=== PATIENT | female | born 2000 | race Caucasian/White ===

== ENCOUNTER 2019-10-27 15:04 | Outpatient (CLI) | payer SELFPAY ==
--- NOTE | 2019-10-27 15:14 | XR_ITS ---
WS: [id number] FOOT RIGHT TECHNIQUE: 3 views of the right foot CLINICAL INFORMATION: RIGHT FOOT PAIN COMPARISON: None. FINDINGS: No evidence of acute fracture or dislocation. Normal tarsal metatarsal alignment. Normal calcaneus. N ormal visualized talar dome. Mild soft tissue edema. XR/XR foot RT min 3V* [id number] IMPRESSION: Mild soft tissue edema. No visualized fractures.
== END 2019-10-27 15:05 | disposition home or self-care (01) ==
LOC: RADWPI 15:09
PROVIDERS: Family Provider Nurse Practitioner Family; PCP Nurse Practitioner Family; Visit Provider Nurse Practitioner Family
DX: M79.671 Pain in right foot (principal); R60.9 Edema, unspecified
CPT/HCPCS: 73630

== ENCOUNTER 2019-11-05 13:52 | Outpatient (CLI) | payer BC, SELFPAY ==
--- NOTE | 2019-11-05 14:07 | MR_ITS ---
WS: [id number] INDICATION: Right foot pain TECHNIQUE: MR of the right foot without gadolinium enhancement. Sagittal PD, sagittal STIR, axial T1, axial STIR, axial PD, axial T2, coronal PD, coronal T2 FINDINGS: MR of the right foot without gadolinium enhancement. Normal anatomic alignment. Normal meta tarsals. Normal MCP joints. Normal phalanges. Vitamin E marker in the area of interest dorsal forefoot. Diffuse subcutaneous edema in the area of c oncern. Recommend correlation with cellulitis. No evidence of drainable abscess or fluid collection. Edema extends into the intertarsal soft tissues. Distal Achilles is normal in appearance. No tendinosis. Normal peroneal tendons. Normal extensor and flexor compartment tendons. Normal tarsal bones. No visualized wrist fractures. Normal talus and calc aneus. Normal medial and lateral malleolus. Normal talar calcaneal articulation. MR/MR foot RT wo con* [id number] IMPRESSION: 1. Dorsal and lateral diffuse soft tissue edema in the midfoot and forefoot ex tending into the intertarsal soft tissues. Recommend correlation for recent tra shawn or cellulitis. No drainable fluid collections. 2. No visualized fractures or stress fractures. 3. Normal peroneal tendons. Normal extensor and flexor compartment tendons. 4. Normal talar dome. Normal ankle mortise. 5. No other significant findings.
== END 2019-11-05 13:53 | disposition home or self-care (01) ==
LOC: RADSHAW 14:04
PROVIDERS: PCP Nurse Practitioner Family; Visit Provider Nurse Practitioner Family
DX: M79.671 Pain in right foot (principal); R60.9 Edema, unspecified
CPT/HCPCS: 73718

== ENCOUNTER 2020-10-04 16:30 | Outpatient (CLI) | payer BC, MEDICAID, SELFPAY ==
[2020-10-04 16:30] VITALS: BMI 37.0
[2020-10-04 17:01] VITALS: BP 121/64; PULSE 86
[2020-10-04 17:02] VITALS: TEMP 36.4
--- NOTE | 2020-10-04 17:08 | USR_ITS ---
PROCEDURE INFORMATION: Exam: US , Limited Exam date and time: 10/04/2020 5:08 PM Age: 20 years old Clinical indication: Lmp or gestational age (in weeks): 21w4d; Antepartum complications; Bleeding; ; Additional info: Spotting. Placental evaluation/location, weight/gest TECHNIQUE: Imaging protocol: Real-time ultrasound of the maternal uterus with image documentation. Exam focused on the clinical indication. COMPARISON: No relevant prior studies available. FINDINGS: Gestation: Single live intrauterine gestation. presentation: Cephalic presentation. heart rate: heart rate 147 bpm. Placenta: Anterior placenta. Negative for abruption. Negative for previa. Amniotic fluid: Amniotic fluid volume subjectively adequate. BIOMETRY: Gestational age (AUA): Gestational age based on current biometry 21 weeks, 3 days. Estimated gestational age based on prior clinical dating 21 weeks, 4 days. Estimated weight: Estimated weight 423 g; 47th percentile MATERNAL: Cervix: Cervical length estimated 3.21 cm measured transabdominally. Other findings: Biparietal diameter 4.98 cm; 29th percentile; Head circumference 19.46 cm; 44th percentile; Abdominal circumference 15.93 cm; 26th percentile; Femur length 3.72 cm; 50th percentile US/ OB limited [id number] IMPRESSION: 1. Single live cephalic presentation intrauterine gestation with no acute findings identified. 2. Anterior placenta without evidence of abruption or previa. 3. Unremarkable growth pattern. Current biometry remains concordant with previously estimated gestational age.
[2020-10-04 18:00] LABS: Glucose Urine UA Norm (Normal); Protein Urine Neg (Negative); Urine Appearance Clear (CLEAR); Urine Color Straw (Yellow); pH Urine 7 (5-7)
[2020-10-04 18:01] LABS: Add Urine Culture? No; Add Urine Microscopic? YES; Bacteria Urine 1+ /hpf; Bilirubin Urine Neg (Negative); Blood Urine 3+ (Negative); Ketones Urine Negative (Negative); Leukocyte Esterase Urine Trace (Negative); Nitrate Urine Negative (Negative); RBC Urine 0-4 /hpf (0-2); Squamous Epithelial Cell Urine RARE /hpf (0-5); Urobilinogen Urine Norm (Negative)
== END 2020-10-04 18:00 | disposition home or self-care (01) ==
LOC: OPOB 16:37 → OBGYN 16:38
PROVIDERS: PCP Nurse Practitioner Family; Visit Provider Family Medicine
DX: O46.92 Antepartum hemorrhage, unspecified, second trimester (principal); Z3A.21 21 weeks gestation of pregnancy
CPT/HCPCS: 59025; 76815; 81001; 99211

== ENCOUNTER 2020-11-15 03:12 | Outpatient (CLI) | payer BC, MEDICAID, SELFPAY ==
[2020-11-15] VITALS (7 sets, daily range): BP systolic 122–132; BP diastolic 58–61; PULSE 72–83; RESP 17; TEMP 35.6–35.7; BMI 38.0
[2020-11-15 04:21] LABS: Bilirubin Urine Neg (Negative); Blood Urine Neg (Negative); Glucose Urine UA Norm (Normal); Ketones Urine Negative (Negative); Leukocyte Esterase Urine Trace (Negative); Nitrate Urine Negative (Negative); Protein Urine Neg (Negative); Urine Appearance Clear (CLEAR); Urine Color Yellow (Yellow); Urobilinogen Urine Norm (Negative); pH Urine 5 (5-7)
[2020-11-15 04:22] LABS: Add Urine Culture? No; Amorphous Sediment Urine TRACE /hpf; Bacteria Urine 1+ /hpf; RBC Urine 0-4 /hpf (0-2); Squamous Epithelial Cell Urine 0-4 /hpf (0-5)
== END 2020-11-15 04:42 | disposition home or self-care (01) ==
LOC: OPOB 03:18 → OBGYN 03:20
PROVIDERS: PCP Nurse Practitioner Family; Visit Provider Family Medicine
DX: O26.899 Other specified pregnancy related conditions, unspecified trimester (principal); R10.12 Left upper quadrant pain; Z3A.00 Weeks of gestation of pregnancy not specified
CPT/HCPCS: 81001; 99211

== ENCOUNTER 2020-11-15 04:44 | Emergency (ER) | payer BC, MEDICAID, SELFPAY ==
[2020-11-15 04:50] VITALS: BP 122/73; PULSE 79; RESP 16; TEMP 36.6; O2SAT 97; BMI 38.0
--- NOTE | 2020-11-15 04:53 | W.ED.BACK ---
HPI - Back Pain/Injury General: Chief Complaint: Back Pain/Injury Stated Complaint: upper back pain Time Seen by Provider: 11/15/20 04:52 History of Present Illness: HPI Narrative: 20-year-old female who is approximately 22 weeks presented to the OB department tonight complaining of some upper back pain intermittently. No fever sweats chills no dysuria urgency or frequency UA done in the OB department showed 5-10 white blood cells per high-power field but she denies any dysuria urgency or frequency. She had been doing some lifting at home before this began. Pain is still very positional. MD elicited complaint: back injury Onset (ago): hour(s) Severity: mild Similar Symptoms Previously: No Quality: aching Location: lumbar spine Radiation: none Exacerbating factors: none Relieving factors: none Context: fall Associated symptoms: Deny abdominal pain, arthralgias, chills, change in bowel habits, difficulty walking, dysuria, fatigue, fecal incontinence, fever(s), hematuria, myalgias, nausea, numbness, syncope, tingling/numbness/burning, urinary frequency, urinary urgency, vomiting or weakness Treatments prior to arrival: cold therapy and heat therapy Work related injury: No Review of Systems Const: Denies: fever(s), chills or fatigue Card: Denies: syncope GI: Denies: abdominal pain, nausea, vomiting, fecal incontinence or change in bowel habits : Denies: dysuria, urinary urgency or hematuria Neuro: Denies: difficulty walking Physical Exam Const: COMMON NORMALS: no acute distress GENERAL APPEARANCE: cooperative and comfortable ORIENTATION/CONSCIOUSNESS: Yes awake, Yes oriented to person, Yes oriented to place and Yes oriented to time HENMT: COMMON NORMALS: normocephalic and atraumatic HEAD & SCALP: normocephalic and atraumatic Neck/C-Spine: COMMON NORMALS: no JVD Resp: COMMON NORMALS: normal respiratory effort, No retractions, No use of accessory muscles and clear to auscultation bilaterally AUSCULTATION: clear to auscultation bilaterally Cardio: COMMON NORMALS: no JVD, regular rate, regular rhythm and No murmurs present (Cardio) RATE: regular rate RHYTHM: regular rhythm Extremity: COMMON NORMALS: normal to inspection, capillary refill normal, no clubbing, cyanosis or edema, no calf tenderness and no pedal edema Neuro: SENSORIUM/ORIENTATION: Yes oriented to person, Yes oriented to place and Yes oriented to time Skin: COMMON NORMALS: no rashes or lesions noted GENERAL SKIN EXAM: no rashes or lesions noted Course Vital Signs: Vital signs: Vital Signs Temperature 97.9 F 11/15/20 04:50 Pulse Rate 79 11/15/20 04:50 Respiratory Rate 16 11/15/20 04:50 Blood Pressure 122/73 11/15/20 04:50 Pulse Oximetry 97 11/15/20 04:50 MDM - Back Pain/Injury MDM Narrative: Medical decision making narrative: Discharge patient home Tylenol or Profen ice or heat as needed can use topical analgesics such as icy hot as well follow-up if has no improvement or symptoms Discharge Plan Discharge Patient Disposition: Home Clinical Impression: Strain of lumbar region, Thoracic back pain Condition: Stable Discharge Orders: Discharge ED (Routine); Ordered 11/15/20 Ordered By: Esteban Rodriguez Referrals: Mera Guerra APN [Primary Care Provider] - Patient Instructions: Opioid Safety Coding Level of Care Code ED Locomotive Repairer Diesel for Chg Fwd Exam Comprehensive
== END 2020-11-15 05:24 | disposition home or self-care (01) ==
PROVIDERS: Emergency Provider Family Medicine; PCP Nurse Practitioner Family
DX: O26.892 Other specified pregnancy related conditions, second trimester (principal); S39.012A Strain of muscle, fascia and tendon of lower back, initial encounter; M54.6 Pain in thoracic spine; X58.XXXA Exposure to other specified factors, initial encounter; Z3A.22 22 weeks gestation of pregnancy
CPT/HCPCS: 99281

== ENCOUNTER 2021-02-14 10:00 | Inpatient (IN) | payer BC, MEDICAID, SELFPAY ==
[2021-02-13 19:50] VITALS: BMI 40.6
[2021-02-13 20:38] LABS: Basophils % 0.3 %; Eosinophils % 0.3 %; Hematocrit 32.9 % (37.0-47.0); Hemoglobin 11.1 g/dL (11.5-15.3); Lymphocytes # 2.2 10^3/uL (0.8-4.8); Lymphocytes % 17.9 %; Mean Corpuscular HGB Conc 33.7 g/dL (30.0-36.0); Mean Corpuscular Hemoglobin 31.1 pg (28.0-34.0); Mean Corpuscular Volume 92.2 fl (81-99); Mean Platelet Volume 10.5 fL (7.4-10.4); Monocytes # 0.6 10^3/uL (0.2-0.9); Monocytes % 5.2 %; Neutrophils # 9.26 10^3/uL (1.8-7.7); Neutrophils % 75.8 %; Nucleated Red Blood Cells % 0 %; Platelet Count 297 10^3/cmm (130-400); Red Blood Count 3.57 10^6/uL (4.1-5.3); Red Cell Distribution Width 12.6 % (12.1-15.1); White Blood Count 12.2 10^3/uL (4.0-10.0)
[2021-02-13] MEDS: miSOPROStol 100 mcg tablet 25 MCG VAGINAL (20:50)
[2021-02-13 21:19] VITALS: BP 118/59; PULSE 79
[2021-02-13 21:24] VITALS: TEMP 36.3
[2021-02-13 21:32] VITALS: RESP 16
[2021-02-13 22:27] VITALS: BP 126/60; PULSE 70
[2021-02-13 22:48] VITALS: BP 108/56; PULSE 68
[2021-02-14] VITALS (70 sets, daily range): BP systolic 94–142; BP diastolic 49–93; PULSE 61–118; RESP 15–17; TEMP 35.5–36.1; O2SAT 99–100
[2021-02-14] MEDS: miSOPROStol 100 mcg tablet 25 MCG VAGINAL ×3 (07:01→11:16)
[2021-02-14] MEDS: fentaNYL 50 mcg/mL INJ 2mL IVP ×2 (07:03→11:24)
[2021-02-14] MEDS: dextrose 5%-lactated ringers 1,000 ML 125 ML IV ×2 (12:09→22:16)
[2021-02-14] MEDS: oxytocin 30 UNIT/500 ML BAG IV (15:37)
[2021-02-14] MEDS: lactated ringers 1,000 ML 999 ML IV ×2 (16:15→17:25)
--- NOTE | 2021-02-14 17:19 | P.ANESUD_ITS ---
Pre-Anesthetic Update Pre-Anesthetic Assessment: Date of Surgery/Procedure: 02/14/21 Preop Promise gnosis: IUP Labs Last 48hrs: Laboratory Results - last 48 hr 02/13/21 20:11 WBC 12.2 H RBC 3.57 L Hgb 11.1 L Hct 32.9 L MCV 92.2 MCH 31.1 MCHC 33.7 RDW 12.6 Plt Count 297 MPV 10.5 H Neut % (Auto) 75.8 Lymph % (Auto) 17.9 [place] % (Auto) 5.2 Eos % (Auto) 0.3 Baso % (Auto) 0.3 Neut # (Auto) 9.26 H Lymph # (Auto) 2.2 [place] # (Auto) 0.6 Eos # (Auto) 0.0 Baso # (Auto) 0.0 Nucleated RBC % (a uto) 0 Nucleated RBCs # 0.0 Vitals: Temperature 95.9 F L 02/14/21 15:04 Pulse Rate 78 02/14/21 17:16 Respiratory Rate 17 02/14/21 11:24 Respiratory Effort Non-Labored 02/14/21 11:24 Respiratory Depth Normal 02/14/21 11:24 Respiratory Patter n 02/14/21 11:24 Blood Pressure 121/69 02/14/21 17:16 Pulse Oximetry 99 02/14/21 17:15 Oxygen Delivery Me thod 02/13/21 20:34 Cardiac Studies: No Data to Display
--- NOTE | 2021-02-14 17:21 | P.ANES_ITS ---
Anesthesia Procedures Procedure/Date: 02/14/21 Epidural: Time Out Performed: Yes Consents Signed: Procedure Consent Consent: requested by attending/covering physician and from patient Lumbar Level: L3-L4 Epidural position: sitting Epidural procedure: sterile prep of area, 1% lidocaine to numb the area, negative for paresthesia passed, test do se given, 1.5% xylocaine 1:200k epi, placed PCEA, no systemic response, sterile dressing applied, L.U.D. no apparent complications and 0.2% Ropiavacaine @ mls/hr (13 ml) Additional Comments: MALIK 8 cm catheter threaded with ease to 15 cm. negative test dose, negative CSF.
--- NOTE | 2021-02-14 18:23 | PM.OPHPUD ---
Labor & Delivery H&P Update Date of Procedure: February 14, 2021 Date H&P Performed: 02/09/21 H&P update information: I have reviewed H&P completed within last 30 days, I have examined patient prior to procedure and Changes to prior documentation as noted here Changes to previous documentation: The patient cervix is 4 cm dilated and 50% effaced Admission Diagnosis: 20-year-old 1 at 40 weeks and 5 days estimated stational age presenting for induction Preop diagnosis: IUP Primary indication for procedure: Postdates Planned procedure: Spontaneous vaginal delivery Other information: The patient's labs were unremarkable overall. She is GBS negative. She is Covid negative. She did fail her initial 1 hour glucose screen but passed her 3-hour glucose screen. The remainder of her labs were within normal limits. Related Problem List Diagnoses (1) 40 weeks gestation of :
--- NOTE | 2021-02-14 20:19 | PC.NURSE ---
Pitocin running at 8mLs/hr at 1900
[2021-02-15] VITALS (57 sets, daily range): BP systolic 90–151; BP diastolic 47–93; PULSE 66–96; RESP 16–18; TEMP 35.9–36.7; O2SAT 97–98
[2021-02-15] MEDS: ondansetron 2 mg/ML SDV 2 mL 4 MG IVP ×2 (00:20→04:47)
[2021-02-15] MEDS: dextrose 5%-lactated ringers 1,000 ML 125 ML IV ×2 (05:08→12:09)
[2021-02-15] MEDS: oxytocin 30 UNIT/500 ML BAG 600 UNIT IV (11:59)
--- NOTE | 2021-02-15 12:36 | PM.DELIVERY ---
Delivery Note: Date of delivery: February 15, 2021 Pre-delivery diagnoses: 1. 20-year-old 1 at 40 weeks and 5 days presenting for induction Post-delivery diagnoses: Status post vacuum-assisted vaginal delivery Procedure: Vacuum-assisted vaginal delivery Op report anesthesia: Epidural Delivering Physician: Ruslan Gil Estimated blood loss (mL): 150 Pre-Delivery Course: The patient's had been unremarkable. Her blood type was O-. Her antibody screen was negative. She received a RhoGam on December 09. Her HIV, GC, chlamydia, hepatitis B, hepatitis C and RPR were all negative. Her drug screen was negative. Her initial glucose screen came back at 178. She passed her 3-hour glucose screen. She is rubella immune. She is GBS negative and Covid negative. She presented to the hospital for induction due to postdates. Her induction was relatively unremarkable. She was placed on Cytotec x3 per vagina. Pitocin was then initiated. Her membranes were ruptured about 15 hours prior to delivery. She did not have any fever during her labor. She had no other indications of infection. The patient pushed for over 2 hours. For about the last hour of her pushing, there was no progress made. The position was about 1+. She was physically and emotionally exhausted. A vacuum assist was applied and released during 11 contractions. One pop-off occurred. Delivery: DELIVERY: She delivered a male with a weight of 6 pounds 10 ounces with Apgars of 2, 3, 6. The baby was delivered from the ALIREZA position and placed on the mother's abdomen. The cord was then clamped and cut. There was a nuchal cord x1 which was easily reduced. There was no shoulder dystocia. There was terminal meconium. The placenta and 3 vessel cord were delivered intact shortly thereafter. The perineum and vaginal vault were carefully examined. A single first-degree laceration was noted on the right vaginal wall which did not require repair. The mother was in stable condition. The baby required further intervention and was transferred to the nursery. Post-Delivery Status: Good A&P Assessment and plan (1) 40 weeks gestation of : Status: Acute (2) Vacuum-assisted vaginal delivery: Status: Acute Coding Level of Care Code Acute Automatic Line Set Up Mechanic for Chg Fwd Diagnoses 40 weeks gestation of Z3A.40 Vacuum-assisted vaginal delivery Z37.9
[2021-02-15] MEDS: HYDROcodone-acetaminophen 5-325 mg Tablet PO (13:13)
[2021-02-15] MEDS: benzocaine-menthol 78 gm Canister 1 SPRAY TOPICAL (13:13)
--- NOTE | 2021-02-15 13:13 | PC.NURSE ---
PT FEELING LIKE SHE MAY NEED TO VOID/HAVE BOWEL MOVEMENT. PT STILL NOT ABLE TO MOVE LEGS WITHOUT ASSISTANCE. PT TO BEDPAN. UNABLE TO VOID/STOOL. SISSY CARE PERFORMED. DERMAPLAST AND ICE PACK TO PERINEUM. PAIN MEDICATION PROVIDED. PT EATING REGULAR TRAY. ICE WATER PROVIDED. INSTRUCTED PT TO CALL FOR ASSISTANCE PRIOR TO TRY TO GET OUT OF BED, UNDERSTANDING VOICED.
--- NOTE | 2021-02-15 15:30 | PC.NURSE ---
PT TO [facility]Y VIA WHEEL CHAIR TO SEE BABY
[2021-02-15] MEDS: ibuprofen 800 mg tablet PO ×2 (15:39→23:48)
--- NOTE | 2021-02-15 16:11 | PC.NURSE ---
PT TO OB7 VIA WHEELCHAIR AND TO BED WITHOUT ASSISTANCE. ORIENTED TO ROOM/CALL LIGHT. INSTRUCTED TO CALL FOR ASSISTANCE GETTING UP OUT OF BED.
--- NOTE | 2021-02-15 16:13 | PC.NURSE ---
VACUUM ASSISTED DELIVERY KIWI OMNI CUP USE BY DR MASON. VAC ON :00:01 POP OFF 11:00:25 VAC ON ::57 RELEASE 11::45 VAC ON ::00 RELEASE 11:04:31 VAC ON ::44 RELEASE 11:06:55 VAC ON ::23 RELEASE 11:08:05 VAC ON :08:54 RELEASE 11:09:32 VAC ON :11:30 RELEASE 11:12:14 VAC ON :12:50 RELEASE 11:14:21 VAC ON :15:54 RELEASE 11:16:33 VAC ON :17:24 RELEASE 11:18:19 VAC ON :19:33 RELEASE 11:20:27 DELIVERY OF BABY 11:21
--- NOTE | 2021-02-15 18:01 | PC.NURSE ---
1750 Pt to nursery Pt to nursery to see baby.
--- NOTE | 2021-02-15 18:03 | PC.NURSE ---
1800 Pt in nursery with baby.
[2021-02-15] MEDS: docusate sodium 100 mg Capsule PO (18:30)
--- NOTE | 2021-02-16 01:18 | PC.NURSE ---
Pt pumping at this time.
[2021-02-16 01:20] VITALS: BP 135/79; PULSE 84; TEMP 37; O2SAT 97
--- NOTE | 2021-02-16 01:34 | PC.NURSE ---
0045 Lab in room to collect hemogram
[2021-02-16 01:44] LABS: Hematocrit 30.2 % (37.0-47.0); Hemoglobin 9.8 g/dL (11.5-15.3); Mean Corpuscular HGB Conc 32.5 g/dL (30.0-36.0); Mean Corpuscular Hemoglobin 30.7 pg (28.0-34.0); Mean Corpuscular Volume 94.7 fl (81-99); Mean Platelet Volume 10.7 fL (7.4-10.4); Platelet Count 251 10^3/cmm (130-400); Red Blood Count 3.19 10^6/uL (4.1-5.3); Red Cell Distribution Width 12.7 % (12.1-15.1); White Blood Count 20.5 10^3/uL (4.0-10.0)
[2021-02-16 05:30] VITALS: BP 107/69; PULSE 78; O2SAT 95
--- NOTE | 2021-02-16 06:23 | PC.NURSE ---
Lab called to let RN know that maternal hemorrhage screen completed and rhogam is ready.
--- NOTE | 2021-02-16 06:43 | PC.NURSE ---
0620 pt sitting up in bed pumping at this time.
--- NOTE | 2021-02-16 07:04 | PM.OBGYDC ---
Discharge Providers NURSE CLINICIAN Date of Admission: 02/14/21 10:00 Date of Discharge: 02/18/21 Attending Provider at Admission: Ruslan Gil MD Attending Provider at Discharge: Ruslan Gil MD Primary Care Provider: Mera Guerra APN Diagnoses at Discharge Discharge Diagnosis (1) 40 weeks gestation of : Status: Resolved Reason for Visit Reason for Visit: IOL Hospital Course Hospital Course The patient presented to the hospital for induction due to postdates. She was placed on Cytotec 25 mcg x 3. She was placed on Pitocin. An amniotomy was performed. An epidural was placed. She is progressed to complete and pushed for over 2 hours. The final hour of pushing, there is minimal change in the position of the baby. As result a vacuum was used to assist in delivery. Her baby was delivered and was noted to have minimal respiratory effort and had Apgars of 2, 3, and 6. The patient's course was unremarkable other than her concern about her baby that had to be transferred. Her bleeding was within normal limits. Her pain was well controlled. She was discharged home the subsequent morning. Information Peripartum Data: Delivery Method: Operative Vaginal Physical Exam Narrative: EXAM NARRATIVE: The patient is alert. She appears comfortable. Her heart has a regular rate and rhythm with no murmurs appreciated. Lungs are clear to auscultation bilaterally. Her fundus is firm and below the umbilicus. Urinary Catheter Management^: Castillo Latex: Cath Placed During This Visit: yes Reason for Continuing Indwelling Catheter: Accurate Measurement of Urinary Output in Critically Ill Patients Urinary Catheter Date of Insertion: 02/14/21 Urinary Catheter Time of Insertion: 17:59 Discharge Data Data Completed and Pending: Pending at discharge Category Date Time Status Antibody Identifi cation Routine Lab 02/13/21 20:11 Results Complete Crossmat ch Routine Lab 02/13/21 20:11 Results Rho D Immune Glob ulin Routine Lab 02/13/21 20:11 Results Type and Screen R outine Lab 02/13/21 20:11 Results Labs from last 24 hours 02/16/21 02/16/21 02/13/21 00:49 00:49 20:11 WBC 20.5 H RBC 3.19 L Hgb 9.8 L Hct 30.2 L MCV 94.7 MCH 30.7 MCHC 32.5 RDW 12.7 Plt Count 251 MPV 10.7 H Blood Type O Negative Rho(D) Type Negative Antibody Screen Positive Antibody Identific ation Anti-D Screen Negative Vitals: Last Vital Signs Temp 98.6 F 02/16/21 01:20 Pulse 78 02/16/21 05:30 Resp 16 02/15/21 19:40 BP 107/69 02/16/21 05:30 Pulse Ox 95 02/16/21 05:30 Discharge Plan Discharge Patient Disposition: Home Condition: Stable Prescriptions: New ibuprofen 800 mg Tablet 800 mg PO TID Qty: 45 RF: 0 -U 106.5-1 mg Capsule 1 cap PO DAILY Qty: 90 RF: 0 Discharge Orders: Discharge Order (Routine); Ordered 02/16/21 Ordered By: Ruslan Gil Referrals: Ruslan Gil MD [Physician] - 03/29/21 1:45 pm Discharge Diet: Usual diet Discharge Activity: Limit activity as instructed Patient Instructions: Your Baby (DC), Expression, Collection and Storage of Breast Milk (GEN), How to Hold and Breastfeed Your Baby (GEN), and Nipple Soreness (GEN), and Breast Engorgement (GEN), How to Tell if Your Baby is Getting Enough Breast Milk (GEN), OB Discharge Report, OB Food/Drug Interaction Guide, OB Care at Home, Opioid Safety, OB Vaginal Deliveries Discharge Attestations NURSE CLINICIAN Time Spent in Discharge Care*: less than 30 min Specific Discharge Activities: Specific discharge activities: educating patient and educating and/or supporting family/caregiver Coding Level of Care Code Acute Binding Stitcher for Chg Fwd Diagnoses 40 weeks gestation of Z3A.40
--- NOTE | 2021-02-16 07:25 | ANE.PACU2 ---
Inpatient post-anesthesia follow up: Airway intact: Yes Vital signs: Temperature 98.6 F Pulse Rate 78 Respiratory Rate 16 Blood Pressure 107/69 Pulse Oximetry 95 Oxygen Delivery Me thod Room Air Oxygen Flow Rate Fraction of Inspir ed Oxygen Hydration adequate: Yes Nausea and vomiting: No Mental status: Baseline
[2021-02-16 08:24] VITALS: PULSE 79; RESP 16; TEMP 36.8; O2SAT 97
--- NOTE | 2021-02-16 08:34 | PC.NURSE ---
note Patient was set up with Medela breast pump last night and pumped 10 ml. this morning she started to pump but said it was painful so she did not pump. Reviewed use of pump and possibly the flanges were not centered and/or she used too much suction. She pumped for about 15 -20 min. using the let down setting the whole time. Not a measurable amount returned but both flanges had moisture in them. Also showed her how to use the manual handle. Provided Understanding and contact information.
[2021-02-16 09:57] VITALS: BP 116/72; PULSE 90; RESP 16; TEMP 36.6; O2SAT 97
== END 2021-02-16 10:05 | disposition home or self-care (01) | DRG 806 ==
LOC: OPOB 10:01 → OBGYN 10:01
PROVIDERS: Admitting Provider Family Medicine; PCP Nurse Practitioner Family; Visit Provider Family Medicine
DX: O48.0 Post-term pregnancy (principal); O36.0930 Maternal care for other rhesus isoimmunization, third trimester, not applicable or unspecified; Z37.0 Single live birth; Z3A.40 40 weeks gestation of pregnancy; O69.2XX0 Labor and delivery complicated by other cord entanglement, with compression, not applicable or unspecified; O77.0 Labor and delivery complicated by meconium in amniotic fluid
CPT/HCPCS: 12345; 36415; 36430; 51702; 59025; 59409; 80500; 85025; 85027; 85460; 86850; 86870; 86900; 90384; 98960; J2405; J2795; J3010